=== PATIENT | female | born 1975 | race Caucasian/White ===

== ENCOUNTER 2023-03-04 12:14 | Emergency (ER) | payer OTHER ==
[~2023-03-04] VITALS: Ht 162.6 cm; Wt 99.0 kg
[~2023-03-04 12:14] MED LIST: ACET-2708 MT; SULF1TAB48 MT
[2023-03-04 12:28] VITALS: BP 177/92; PULSE 94; RESP 20; TEMP 98.3; O2SAT 98
[2023-03-04] MEDS ORDERED: AMOX-494 MT (12:50)
== END 2023-03-04 13:01 | disposition home or self-care (01) ==
LOC: ER 12:14
DX: T16.1XXA Foreign body in right ear, initial encounter (principal); H66.91 Otitis media, unspecified, right ear; F19.90 Other psychoactive substance use, unspecified, uncomplicated; X58.XXXA Exposure to other specified factors, initial encounter; Y93.89 Activity, other specified; Y92.89 Other specified places as the place of occurrence of the external cause; Y99.8 Other external cause status
CPT/HCPCS: 69200; 99284